=== PATIENT | female | born 1950 | race Caucasian/White ===

== ENCOUNTER 2020-01-08 16:47 | Inpatient (IN) | payer OTHER ==
[~2020-01-08] VITALS: Ht 162.6 cm; Wt 64.6 kg
[2020-01-08 16:53] VITALS: BP 106/72
[2020-01-08 18:28] LABS: URINE BILIRUBIN NEGATIVE (Negative); URINE BLOOD NEGATIVE (Negative); URINE CLARITY CLEAR; URINE COLOR YELLOW; URINE GLUCOSE-RANDOM* NEGATIVE (Negative); URINE KETONES NEGATIVE (Negative); URINE LEUKOCYTES-REFLEX NEGATIVE (Negative); URINE NITRITE-REFLEX NEGATIVE (Negative); URINE PROTEIN (DIPSTICK) NEGATIVE (Negative); URINE SPECIFIC GRAVITY <= 1.005 (1.005-1.035); URINE UROBILINOGEN 0.2 E.U./dl (0.2-1.0)
[2020-01-08 20:10] LABS: ABSOLUTE NEUTROPHILS 2.3 thou/uL (1.4-8.2); BASOPHILS 0.7 % (0.0-2.0); EOSINOPHILS 2.9 % (0.0-3.0); HEMATOCRIT 37.8 % (37.0-47.0); HEMOGLOBIN 12.6 gm/dL (12.0-15.0); LYMPHOCYTES 33.9 % (24.0-44.0); MCH 32.2 pg (26.0-34.0); MCHC 33.3 g/dL (28.0-37.0); MONOCYTES 10.7 % (1.0-8.0); PLATELET COUNT 196 thou/uL (150-400); POLYS 51.8 % (36.0-66.0); WBC 4.4 thou/uL (4.0-11.0)
[2020-01-08 20:17] LABS: CALCIUM 10.3 mg/dL (8.5-10.1); POTASSIUM 3.5 mmol/L (3.5-5.1)
[2020-01-08 20:22] LABS: ALBUMIN 3.5 g/dL (3.4-5.0); TOTAL BILIRUBIN 0.2 mg/dL (<0.1-1.0); TOTAL PROTEIN 6.9 g/dL (6.4-8.2)
[2020-01-08] MEDS ORDERED: AMLODIPINE BESY10 MG PO (21:10)
[2020-01-08] MEDS ORDERED: ASA81BEC PO (21:10)
[2020-01-08] MEDS ORDERED: CLONAZEPAM 0.50.5 M1 PO (21:11)
[2020-01-08] MEDS ORDERED: DEPAKOTE 250MG250 M1 PO ×2 (21:11→21:12)
[2020-01-08] MEDS ORDERED: LEXAPRO 10 MG T10 M2 PO (21:13)
[2020-01-08] MEDS ORDERED: HALOPERIDOL 5 MG5 MG PO (21:14)
[2020-01-08] MEDS ORDERED: HYDROCHLOROTHIA25 M2 PO (21:14)
[2020-01-08] MEDS ORDERED: LACTULOSE10 GM/152 PO (21:16)
[2020-01-08] MEDS ORDERED: LEVETIRACETAM500 M1 PO (21:16)
[2020-01-08] MEDS ORDERED: SYNTHROID112 MC1 PO (21:17)
[2020-01-08] MEDS ORDERED: LINZESS72 MCG PO (21:18)
[2020-01-08] MEDS ORDERED: LISINOPRIL20 MG PO (21:18)
[2020-01-08] MEDS ORDERED: OXCARBAZEPINE600 MG PO (21:19)
[2020-01-08] MEDS ORDERED: ZYPREXA 10 MG T10 MG PO (21:19)
[2020-01-08] MEDS ORDERED: RISPERDAL0.5 MG PO (21:20)
[2020-01-08] MEDS ORDERED: CLONIDINE HCL0.1 MG PO (21:21)
[2020-01-08] MEDS ORDERED: TRAZODONE HCL50 MG PO (21:21)
[2020-01-08] MEDS ORDERED: ALMACONE LIQUI355 ML PO (21:22)
[2020-01-08] MEDS ORDERED: TYLENOL325 MG PO (21:22)
[2020-01-08 21:23] VITALS: BP 110/74
[2020-01-08] MEDS ORDERED: ATIVAN2 MG PO (21:24)
[2020-01-08] MEDS ORDERED: ZOFRAN4 MG PO (21:24)
[2020-01-08] MEDS ORDERED: VOLTAREN GEL 1100 G1 TOP (21:25)
--- NOTE | 2020-01-08 21:30 | NUR ---
Patient admitted to [facility] after medical clearance from the [place] emergency department. Patient brought to us by wheel chair. Patient is in good spirits and cooperative at this time. Patient denies pain. Patient states that she fell from her chair and scuffed her knees and chin. Scabbing is present on both knees anteriorly and patient has a scab on her chin. Patient is a poor historian. Patient states that she is 43 years old. Patient denies hi/si. Patient states that she smokes 2 cigarettes a day and asked if she could have one now. Patient was informed that nicotine patches or nicotine gum would be made available if needed. Patients affect is blunted. Patients vital signs are stable, blood pressure 113/78, pulse 79, respiratory rate 16, SpO2 96%, temperature 96.1. Patients assessment shows clear breath sounds, active bowel sounds, and s1 s2 heard with auscultation.
[2020-01-09 08:20] VITALS: BP 103/80
--- NOTE | 2020-01-09 09:11 | NUR ---
PT EATING IN DINING ROOM. PT STATED SHE HAS ISSUES WITH RT HAND HER THUMB IS STICKING OUT AND HARD TO GET THUMB TO CLOSE. PT HAS SCAB TO CHIN FROM A PREVIOUS FALL. PT STATED SHE HAS SINUS ISSUES. PT CALM AND COORERATIVE. PT SHOWING NO SIGNS OF AGGRESSION. PT TOOK MEDS WHOLE, PT WANTING TO KNOW WHAT EACH PILL WAS. PT IN W/C AT THIS TIME AND GETS AROUND SELF WITH FEET PEDELING.
[2020-01-09 09:18] VITALS: BP 103/80
--- NOTE | 2020-01-09 09:34 | NUR ---
Sw introduced herself to pt and then called and left a for Bhanu DP [phone] providing phone number and requesting information.
[2020-01-09 09:38] LABS: TSH 0.582 uIU/mL (0.358-3.740)
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
[2020-01-09 19:36] VITALS: BP 169/90
[2020-01-09 21:00] VITALS: BP 169/90
--- NOTE | 2020-01-10 00:34 | NUR ---
Assumed care of patient this pm shift. Patient is in good spirits. Patient was sitting in the mileu with another peer talking. Patient denies hi/si. Patient denies pain. Patient asks many questions and was educated on her hs medications. Patient acts appropriately. Patients voice is low and somewhat muffled when she speaks. Patient can ambulate with assistance but has a wobbly gait. Patient was asked to utilize her wheelchair until such time as physical therapy can assess and educate. Patient takes medications whole. Patients assessment shows clear breath sounds, active bowel sounds, and s1 s2 heard with auscultation. Patient does have a loose cough but is not expelling any phlegm. Patient also requested fixadent to seal her denture into place. We will continue to monitor.
[2020-01-10 08:38] VITALS: BP 120/86
--- NOTE | 2020-01-10 09:25 | NUR ---
SW has made multiple attempts to complete the intake assessment but pt does not want to communicate. Sw sent updates to [facility] and called and left a VM for admissions.
--- NOTE | 2020-01-10 12:29 | NUR ---
In dining room without s/o distress. Calm majority of time but has periods where she becomes agitated, demanding and raises voice. Compliant with meds. Ambulates with unsteady gait but refuses to use walker. Put on yellow Tshirt with encouragement and uses chair alarm when reminded. Sometimes has rambling speech. Asks that we talk to pts about flu and pneumococcal vaccines. Refusing assessment at this time, states she will agree after lunch. Took short nap before lunch. Currently eating lunch in day room with peers. No s/o distress.
[2020-01-10 20:00] VITALS: BP 117/72
[2020-01-10 22:18] VITALS: BP 117/72
--- NOTE | 2020-01-11 00:43 | NUR ---
2030 RESUMMED CARE FROM DAY SHIFT, PATIENT IN DAY ROOM TALKING WITH OTHER PATIENTS. PATIENT'S GAIT WOBBLY I SUGGESTED SHE USE A WALKER TO HELP GAIT BUT REFUSED. PATIENT TOOK MEDICATION WITHOUT INCIDENCE, DENIES SI/HI/AH/VH AT PRESENT. PATIENT HAD A SMALL FORMED BOWEL MOVEMENT, LUNGS CLEAR BOWEL SOUNDS PRESENT. PATIENT COOPERATIVE SOME ANXIETY WILL CONTINUE TO MONITOR PATIENT FOR SAFETY AND BEHAVIORS.
[2020-01-11 08:20] VITALS: BP 122/79
--- NOTE | 2020-01-11 08:20 | NUR ---
PT IN DINING ROOM AMBULATING WITH WOBBLE GAIT. PT IS STEADY. PT HAS HX OF POLIO. PT DENIES ANY PAIN. PT STATED SHE TOOK OFF NICOTINE PATCH LAST NIGHT AND PUT IT ON THE BACK OF A RECLINER CHAIR, THIS FRONT MAKER FOUND PATCH AND DISPOSED OF IT ACCORDINALY. THANKED PT FOR BEING HONEST OF THE PATCH PLACEMENT. PT LUNGS CLEAR. NO SIGNS OF VADIM AT THIS TIME.
[2020-01-11 09:34] VITALS: BP 122/79
--- NOTE | 2020-01-11 12:14 | NUR ---
Sw attempted to complete intake assesmsnet in multiple ways. Pt was guarded, and hostile. [facility] was unable to provide any social HX, and SW left a VMw bill Drummond asking for collatoral information and no call was returned. Jessica sent updates on 01/10 20.
--- NOTE | 2020-01-11 13:18 | NUR ---
TOOK OFF NICOTINE PATCH, PT STATED SHE DIDN'T NEED IT.
--- NOTE | 2020-01-11 16:34 | NUR ---
Jessica completed the FAX civersheet and updates will be sent on Tuesday to [facility].
[2020-01-11 21:34] VITALS: BP 142/64
[2020-01-11 22:53] VITALS: BP 142/64
--- NOTE | 2020-01-12 01:12 | NUR ---
Pt. up ad diego ambulating in hallways and making demands for snacks and various other things. Pt. was taken scrub pants and another blanket for her room and was given sugar-free cookies from cabinet. Pt. took hs meds without difficulty and put her self to bed.
[2020-01-12 09:06] VITALS: BP 104/60
[2020-01-12 10:13] VITALS: BP 104/69
--- NOTE | 2020-01-12 11:41 | NUR ---
1040 RESUMMED CARE FROM OVERNIGHT SHIFT THIS AM, PATIENT IN DAY ROOM WAITING FOR BREAKFAST. PATIENT TOOK MEDICATION WITHOUT INCIDENCE I APPLIED MEDICATION FOR SCRAPS ON CHIN AND KNEES. PATIENT'S BOWEL SOUNDS PRESENT, LUNGS CLEAR ABDOMEN SOFT. PATIENT DENIES SI/HI/AH/AH NO DEPRESSION OR ANXIETY AT PRESENT, I ASKED PATIENT IF SHE WANTED A WALKER TO HELP WITH GAIT DUE TO HX OF POLIO. SHE REFUSED WILL CONTINUE TO MONITOR SAFETY AND BEHAVIORS.
[2020-01-12 19:26] VITALS: BP 106/79
[2020-01-13 02:27] VITALS: BP 106/79
--- NOTE | 2020-01-13 05:19 | NUR ---
Pt.'s voice is hoarse and loud and speech is garbled. Pt. becomes inpatient when she is not understood and has to repeat herself. Pt. is up ad diego ambulating in halls. Gait is slow and deliberate. Pt. has curved spine and gait wobbles side to side. Pt. has had a history of polio. Pt. denies any pain and no signs and symptoms of distress noted. Pt. took meds whole with thin liquids.
--- NOTE | 2020-01-13 05:21 | NUR ---
Pt. slept well throughout shift. Pt. awoke once and came to nurse's station. Once she was told that it was 2:30 a.m. she returned to her room and to her bed. Respirations even and non-labored. NO signs or symptoms of distress noted.
[2020-01-13 06:24] VITALS: BP 166/64
--- NOTE | 2020-01-13 18:19 | NUR ---
PATIENT UP AMBULATING, REFUSING WALKER. REPORTS DRY LIPS, OFFERED PATIENT MOUTH MOISTURIZER FROM HOSPITAL SUPPLY. PATIENT ARGUMENTATIVE THAT SHE NEEDS BLISTEX. STATES IT IS THE ONLY THING THAT WILL WORK. CALLED FAMILY AND REPORTED WE WOULDN'T HELP HER, FAMILY REQUESTED TO SPEAK WITH NURSE. EXPLAINED THAT WE ONLY HAVE 1 TYPE OF MOISTURIZER AND WE OFFERED. EDUCATED THAT FAMILY MAY BRING A DIFFERENT MOISTURIZER. FAMILY VISITED PATIENT AT 16:00, BROUGHT BLISTEX FOR PATIENT. PATIENT RESTLESS THIS SHIFT. PUSHING OTHER PATIENT AROUND HALLS IN WHEELCHAIR. REDIRECTS WELL. PARTICIPATED IN GROUP. SOCIAL WITH OTHERS THIS SHIFT.
[2020-01-13 19:36] VITALS: BP 125/78
--- NOTE | 2020-01-14 03:49 | NUR ---
ASSUMED PT CARE AROUND 1914. AXOX2. VSS. NO S/S ACUTE DISTRESS NOTED OR REPORTED AT THIS TIME. WILL CONT TO MONITOR FOR ANY CHANGES IN CONDITION.
[2020-01-14 07:57] VITALS: BP 144/70
--- NOTE | 2020-01-14 10:01 | NUR ---
0700 ASSUMED CARE OF PATIENT AT THIS TIME. PATIENT ASLEEP AT THAT TIME. 0850 NO C/O PAIN, DENIES SI/HI/AH/VH, PATIENT STATES SHE WAS GIVEN TO MANY MEDS LAST NIGHT, WAS SUPOSE TO RECIEVE 2 PILLS AND RECIEVED 4 PILLS. SHE COMPLAINS OF BEING OVER MEDICATED. QUESTIONED ALL MEDS BEFORE TAKING, MEDS GIVEN WHOLE WITH H2O. NO GOAL VOICED. PATIENT CONCERN ARE HER MEDICATION. PATIENTIS CALM AND APPEARS TO GET AGITATED WHEN DISCUSSING MEDICATION. AMBULATES WITH STEADY GAIT IN ROSEN AND DAYROOM. WILL CONTINUE TO OBSERVE.
--- NOTE | 2020-01-14 16:07 | NUR ---
SW made 2 calls to [facility] requesting a call back and a time for picker box operator as pt was discharging tomorrow. [facility] did not call back. At this point there is no d/c time.
--- NOTE | 2020-01-14 17:35 | NUR ---
PATIENT REQUESTS TO HAVE CODE STATUS CHANGED TO FULL CODE. DR WRIGHT NOTIFIED AND CODE STATUS WILL BE CHANGED.
[2020-01-14 19:49] VITALS: BP 126/91
--- NOTE | 2020-01-15 02:10 | NUR ---
Care assumed of patient at 1915: Patient seated in dayroom at start of shift. Calm, pleasant and cooperative. Mumbled speech at times. Alert and oriented to person and place. Confused and forgetful on situation and time. Denies pain or discomfort. Denies anxiety and depression. Denies SI/HI/AH/VH. No delusional or paranoia behaviors observed. Patient needed re-direction a couple times due to demanding medications but was easily re-directed without issue. Patient up ad diego. Good balance, unsteady gait noted at times. No use of assistive devices. Continent of bowel and bladder. Ate 100% HS snack. Took HS medication whole without difficulty. Retired to bed at a reasonable hour and has been resting quietly.
[2020-01-15] MEDS ORDERED: ZYPREXA 5 MG TAB5 M1 PO (08:28)
[2020-01-15] MEDS ORDERED: OLANZAPINE ODT5 MG PO (08:28)
[2020-01-15 08:53] VITALS: BP 138/75
--- NOTE | 2020-01-15 08:58 | NUR ---
SAUNDRA called [facility] after not recieving a call back yesterday and no VM today. Admissions was unavailable so SAUNDRA asked for [facility] and then had to leave yet another VM. SW rpeorted in the VM that this pt was redy to d/c today and we needed a time for pharmacy picking tech.
[2020-01-15 09:39] VITALS: BP 138/75
--- NOTE | 2020-01-15 10:02 | NUR ---
JESSICA finally spoke with [facility] in admissions and d/c was set for 1PM. Jessica set up transportation with [employer] for 1pm pharmacy picking technician.This was reported to Dr Morrison and nursing. Jessica made packet and left in on chart. Jessica faxed d/c orders and summary to [phone] and left FAx confirmation with fax packet on chart.
--- NOTE | 2020-01-15 10:18 | NUR ---
1018 RESUMMED CARE FROM OVERNIGHT SHIFT THIS AM, PATIENT UP DRESSED WAITING IN DAY ROOM FOR BREAKFAST. PATIENT ATE BREAKFAST TOOK MEDICATION WITHOUT INCIDENCE. PATIENT IS DISCHARGING TODAY AND IS VERY HAPPY; BOWEL SOUNDS PRESENT ABDOMEN SOFT AND ROUND. LUNGS CLEAR DENIES SI/HI/AH/VH AT PRESENT. I WENT OVER PATIENT'S BELONGINGS PRIOR TO DISCHARGE. PATIENT CALM COOPERATIVE WILL CONTINUE TO MONITOR PATIENT FOR SAFETY AND BEHAVIORS.
== END 2020-01-15 12:59 | DRG 885 ==
LOC: ER 16:47 → EROBS 20:29 → SBH 20:29
PROVIDERS: Physician Assistant; ADMIT Psychiatry & Neurology Psychiatry
DX: F20.9 Schizophrenia, unspecified (principal); N18.3 Chronic kidney disease, stage 3 (moderate); G93.40 Encephalopathy, unspecified; G89.29 Other chronic pain; F31.9 Bipolar disorder, unspecified; F41.9 Anxiety disorder, unspecified; G40.909 Epilepsy, unspecified, not intractable, without status epilepticus; F17.210 Nicotine dependence, cigarettes, uncomplicated; M79.644 Pain in right finger(s); I12.9 Hypertensive chronic kidney disease with stage 1 through stage 4 chronic kidney disease, or unspecified chronic kidney disease; Z66 Do not resuscitate; E03.9 Hypothyroidism, unspecified; K58.9 Irritable bowel syndrome, unspecified; M19.90 Unspecified osteoarthritis, unspecified site; Z79.899 Other long term (current) drug therapy; Z79.82 Long term (current) use of aspirin; Z88.1 Allergy status to other antibiotic agents; Z88.0 Allergy status to penicillin; Z88.8 Allergy status to other drugs, medicaments and biological substances; Z85.89 Personal history of malignant neoplasm of other organs and systems
CPT/HCPCS: 10880

== ENCOUNTER 2020-03-27 10:49 | Emergency (ER) | payer OTHER ==
[~2020-03-27] VITALS: Ht 157.5 cm; Wt 63.5 kg
[~2020-03-27 10:49] MED LIST: ALMACONE LIQUI355 ML PO; AMLODIPINE BESY10 MG PO; ASA81BEC PO; ATIVAN2 MG PO; CLONAZEPAM 0.50.5 M1 PO; CLONIDINE HCL0.1 MG PO; DEPAKOTE 250MG250 M1 PO; HALOPERIDOL 5 MG5 MG PO; HYDROCHLOROTHIA25 M2 PO; LACTULOSE10 GM/152 PO; LEVETIRACETAM500 M1 PO; LEXAPRO 10 MG T10 M2 PO; LINZESS72 MCG PO; LISINOPRIL20 MG PO; OLANZAPINE ODT5 MG PO; OXCARBAZEPINE600 MG PO; RISPERDAL0.5 MG PO; SYNTHROID112 MC1 PO; TRAZODONE HCL50 MG PO; TYLENOL325 MG PO; VOLTAREN GEL 1100 G1 TOP; ZOFRAN4 MG PO; ZYPREXA 10 MG T10 MG PO; ZYPREXA 5 MG TAB5 M1 PO
[2020-03-27 11:32] LABS: ABSOLUTE NEUTROPHILS 7.5 thou/uL (1.4-8.2); BASOPHILS 0.3 % (0.0-2.0); EOSINOPHILS 1.6 % (0.0-3.0); HEMATOCRIT 36.2 % (37.0-47.0); HEMOGLOBIN 12.3 gm/dL (12.0-15.0); LYMPHOCYTES 11.6 % (24.0-44.0); MCH 32.9 pg (26.0-34.0); MCV 96.9 fL (80.0-100.0); MONOCYTES 8.4 % (1.0-8.0); PLATELET COUNT 189 thou/uL (150-400); POLYS 78.1 % (36.0-66.0); RBC 3.73 mil/uL (4.20-5.00); RDW 14.5 % (10.5-14.5); WBC 9.6 thou/uL (4.0-11.0)
[2020-03-27 11:36] LABS: CREATININE 1.1 mg/dL (0.6-1.0)
[2020-03-27 11:44] LABS: ALBUMIN 3.7 g/dL (3.4-5.0); MAGNESIUM 1.7 mg/dL (1.8-2.4); TOTAL BILIRUBIN 0.4 mg/dL (<0.1-1.0); TOTAL PROTEIN 7.4 g/dL (6.4-8.2)
[2020-03-27 12:32] LABS: AMP/METHAMP Negative (Negative); BARBITURATES Negative (Negative); BENZODIAZEPINES Negative (Negative); COCAINE Negative (Negative); METHADONE Negative (Negative); OPIATES Negative (Negative); PCP Negative (Negative)
[2020-03-27 13:30] VITALS: BP 149/81
[2020-03-27] MEDS ORDERED: ATIVAN2 MG PO ×2 (20:28→21:06)
[2020-03-27] MEDS ORDERED: ZYPREXA2.5 MG PO (20:31)
[2020-03-27] MEDS ORDERED: OLANZAPINE15 MG PO (20:31)
[2020-03-27] MEDS ORDERED: TRAZODONE HCL50 MG PO (21:04)
== END 2020-03-27 14:50 | disposition home or self-care (01) ==
LOC: ER 10:49
PROVIDERS: Emergency Medicine
DX: G40.909 Epilepsy, unspecified, not intractable, without status epilepticus (principal); I10 Essential (primary) hypertension; M19.90 Unspecified osteoarthritis, unspecified site; Z91.14 Patient's other noncompliance with medication regimen; Z88.8 Allergy status to other drugs, medicaments and biological substances; F17.210 Nicotine dependence, cigarettes, uncomplicated; Z91.011 Allergy to milk products; Z88.0 Allergy status to penicillin; Z88.1 Allergy status to other antibiotic agents; Z79.899 Other long term (current) drug therapy; Z79.82 Long term (current) use of aspirin

== ENCOUNTER 2020-03-27 18:04 | Inpatient (IN) | payer OTHER ==
[~2020-03-27] VITALS: Ht 165.1 cm; Wt 55.8 kg
[2020-03-27 18:09] VITALS: BP 159/96
[2020-03-27 18:59] LABS: ABSOLUTE NEUTROPHILS 12.2 thou/uL (1.4-8.2); BASOPHILS 0.5 % (0.0-2.0); EOSINOPHILS 0.2 % (0.0-3.0); HEMOGLOBIN 13.3 gm/dL (12.0-15.0); LYMPHOCYTES 7.8 % (24.0-44.0); MCH 32.2 pg (26.0-34.0); MCHC 33.2 g/dL (28.0-37.0); MONOCYTES 7.9 % (1.0-8.0); POLYS 83.6 % (36.0-66.0); RBC 4.12 mil/uL (4.20-5.00); RDW 14.8 % (10.5-14.5); WBC 14.6 thou/uL (4.0-11.0)
[2020-03-27 19:10] LABS: ANION GAP 15 mmol/L (7-16); BUN 31 mg/dL (7-18); CALCIUM 10.4 mg/dL (8.5-10.1); CHLORIDE 104 mmol/L (98-107); CO2 24 mmol/L (21-32); CREATININE 1.2 mg/dL (0.6-1.0); GLUCOSE 152 mg/dL (74-106); POTASSIUM 3.8 mmol/L (3.5-5.1); SODIUM 143 mmol/L (136-145)
[2020-03-27 19:23] LABS: ALBUMIN 3.9 g/dL (3.4-5.0); DIRECT BILIRUBIN < 0.1 mg/dL (<0.1-0.2); LARGE PLATELETS RARE; PLATELET COUNT 203 thou/uL (150-400); SGOT 24 U/L (15-37); SGPT 29 U/L (30-65); TOTAL BILIRUBIN 0.5 mg/dL (<0.1-1.0); TOTAL PROTEIN 7.9 g/dL (6.4-8.2)
[2020-03-27] MEDS ORDERED: ATIVAN2 MG PO ×2 (20:28→21:06)
[2020-03-27] MEDS ORDERED: OLANZAPINE15 MG PO (20:31)
[2020-03-27] MEDS ORDERED: ZYPREXA2.5 MG PO (20:31)
[2020-03-27 20:50] VITALS: BP 180/97
[2020-03-27 20:59] VITALS: BP 164/98
[2020-03-27] MEDS ORDERED: TRAZODONE HCL50 MG PO (21:04)
[2020-03-27 21:25] VITALS: BP 153/98
--- NOTE | 2020-03-28 03:30 | NUR ---
PATIENT ARRIVED ON UNIT AT 2109 VIA CART FROM ED ACCOMPAINIED BY SAMANTHA WHYTE. PATIENT ALERT BUT VERY CONFUSED. UPON ASSESSMENT COULD NOT EVEN TELL ME HER NAME. HALF OF THE TIME SHE WOULD ONLY MOUTH THE WORDS AND SOMETIMES SHE WOULD USE GESTURES. HAS A THICK VOICE. SOMETIMES HARD TO UNDERSTAND. GETS AGGITATED EASY. SOMETIMES SHE MAKES NO SENSE WHEN TALKING. NO SEIZURE ACTIVITY NOTED BUT BEDRAILS ARE PADDED. IV IN L SHOULDER. DENIES PAIN. SLEPT OFF AND ON DURING THIS SHIFT.
--- NOTE | 2020-03-28 03:50 | NUR ---
RECIEVED CARE OF THIS PATIENT AT 1900. PATIENT C/O PAIN, MED GIVEN WHEN TIME. PATIENT ALERT AND ORIENTED X4 WITH SOME FORGETFULLNESS. ACCUCHECK WAS 75. WAS GIVEN A SNACK. UP WITH MAX ASSIST. SLEPT MOST OF NIGHT.
[2020-03-28 04:00] VITALS: BP 143/82
--- NOTE | 2020-03-28 04:35 | NUR ---
WAS CALLED TO PATIENT'S ROOM. PATIENT WANTED SOME ICE WATER AND TO GET DRESSED BECAUSE SHE HAD TO [facility]. REMINDER HER SHE WAS IN THE HOSPITAL. SHE SAID SHE SELLS [facility] IN [place]. THIS NURSE TOLD HER SHE WAS IN [place], [place]. SHE SAID SHE SELLS [facility] IN [place], [place], TO. REMINDER HER AGAIN SHE WAS IN THE HOSPITAL. SHE ASKED IF SHE COULD GET DRESSED AGAIN. SHE WAS TOLD THAT SHE HAD TO WAIT UNTIL MORNING. SHE TOLD ME THAT I HAD A NICE UNIFORM ON AND WHY COULD SHE NOT HAVE ONE ON. 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 SHE TOLD ME THAT HER AGE WAS ONLY 39, LATER TOLD ANOTHER NURSE THAT SHE WAS ONLY 25.
--- NOTE | 2020-03-28 06:00 | NUR ---
PATIENT HAS BEEN VERY DEMANDING, STUBBORN AND NOT EASY TO REDIRECT. CALLS OUT FOR PEOPLE NOT HERE. HAS BEEN SHOWN HOW TO USE THE CALL LIGHT SEVERAL TIMES. TOLD ME WHILE I WAS DOING HER ASSESSMENT THAT SHE QUIT SMOKING 3 YEARS AGO. NOW HOLLERING FOR A CIGARETTE.
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
[2020-03-28 08:10] VITALS: BP 120/94
--- NOTE | 2020-03-28 09:03 | NUR ---
ASSESSMENT: CM REVIEWED CHART AND DISCUSSED WITH ATTENDING. PT ADMITTED FROM [facility] DUE TO SEIZURES. PT WAS RECENTLY HERE AT [facility] AND DISCHARGED IN JANUARY 2020 BACK TO [facility]. PATIENTS SISTER JANIS IS HER DPOA AND CM SPOKE WITH HER TO UPDATE. EASTON ALSO SPOKE WITH EULOGIO AT [facility] TO UPDATE AND FAXED UPDATED CLINICAL TO HER. PT HAS A WHEELCHAIR AT THE FACILITY. PLANS ARE FOR PATIENT TO RETURN TO [facility] ONCE MEDICALLY STABLE.
[2020-03-28 15:59] VITALS: BP 105/58
[2020-03-28 17:03] LABS: URINE BILIRUBIN NEGATIVE (Negative); URINE BLOOD NEGATIVE (Negative); URINE CLARITY CLEAR; URINE COLOR YELLOW; URINE GLUCOSE-RANDOM* NEGATIVE (Negative); URINE KETONES NEGATIVE (Negative); URINE LEUKOCYTES-REFLEX NEGATIVE (Negative); URINE NITRITE-REFLEX NEGATIVE (Negative); URINE PROTEIN (DIPSTICK) NEGATIVE (Negative); URINE UROBILINOGEN 0.2 E.U./dl (0.2-1.0)
--- NOTE | 2020-03-28 19:27 | NUR ---
PATIENT HAS NICOTINE PATCH ON DR WEISS HERE AND PUT IN ORDER SHE ALSO CHANGED MEDS FROM IV TO PO PATIENT PULLED OUT. WOULD NOT LET IT BE PUT BACK IN DR WEISS STTED SHE WOULD BE GOING BACK TO [facility] WITH PO MEDS WHICH PATIENT TAKES W/O DIFFICULTY. DR WRIGHT STATES PATIENT HAS NO FAMILY. AND HAS BEEN HER PATIENT FOR AWHILE.
[2020-03-28 19:40] VITALS: BP 81/61
--- NOTE | 2020-03-28 19:42 | NUR ---
SPOKE WITH PATIENT'S POA TO UPDATE THIS AM
--- NOTE | 2020-03-29 05:51 | NUR ---
RECEIVED CARE OF THIS PATIENT AT 1900. PATIENT ALERT TO SELF AND SOMETIMES PLACE. WANTED SOMEONE TO GO TO [facility] TO GET SOMETHING FOR HER. SAYS SHE HAS 24 DOLLARS, 2 TENS AND 4 ONES. THIS NURSE SAW THAT SHE DID HAVE SOME MONEY BUT WOULD NOT SHOW ME EXACTLY HOW MUCH. WANDERS FROM ROOM AND IS EASY TO REDIRECT BACK TO ROOM. PATIENT WAS COMPLIANT WITH MEDS AND TOOK THEM WITHOUT ANY TROUBLE.DENIES PAIN. SLEPT MOST OF NIGHT.
[2020-03-29 06:36] LABS: HEMATOCRIT 36.6 % (37.0-47.0); HEMOGLOBIN 12.4 gm/dL (12.0-15.0); MCH 32.9 pg (26.0-34.0); MCHC 33.8 g/dL (28.0-37.0); MCV 97.3 fL (80.0-100.0); RBC 3.77 mil/uL (4.20-5.00); RDW 14.8 % (10.5-14.5); WBC 5.3 thou/uL (4.0-11.0)
[2020-03-29 06:47] LABS: CALCIUM 9.9 mg/dL (8.5-10.1); CREATININE 1.4 mg/dL (0.6-1.0); MAGNESIUM 2.2 mg/dL (1.8-2.4); POTASSIUM 4.6 mmol/L (3.5-5.1)
[2020-03-29 07:11] VITALS: BP 116/65
--- NOTE | 2020-03-29 07:31 | NUR ---
PATIENT RESTING IN BED SLEEPING. PATIENT HAD NO INCREASED ANIETY ON NOC SHIFT TOOK MEDS HAS NICOTINE PATCH ON.
--- NOTE | 2020-03-29 16:10 | NUR ---
PT HAS ORDER FOR BLADDER SCAN WHICH SHOWED 4 ML THEN STRAIGHT CATH FOR UA TRIED XS 2 NURSES NO URINE RETURN WILL CALL DR MULLEN. WILL TRY STRAIGHT CATH LATER IN DAY. PT PLEASANT AND COOPERATIVE WITH CARE TOLERATED STRAIGHT CATH WITH NO COMPLAINTS.
--- NOTE | 2020-03-29 17:28 | NUR ---
CALLED JANIS FELICIANO TO UPDATE ABOUT PATIEN'T CONDITION SHE IS DPOA. NO ANSWER LEFT MESSAGE FOR HER TO CALL
[2020-03-29 18:21] VITALS: BP 92/70
[2020-03-29 20:45] VITALS: BP 95/60
[2020-03-30 05:00] VITALS: BP 80/59
--- NOTE | 2020-03-30 05:15 | NUR ---
ASSUMED PT CARE AT 1900. PT COOPERATIVE WITH CARE, TOOK MEDICATION WITH NO PROBLEMS. WENT TO BED AND SLEPT ALL NIGHT. HOPES TO GO HOME SOON.
[2020-03-30 06:35] VITALS: BP 100/72
[2020-03-30 07:35] LABS: HEMATOCRIT 33.6 % (37.0-47.0); HEMOGLOBIN 11.5 gm/dL (12.0-15.0); MCHC 34.1 g/dL (28.0-37.0); MCV 96.6 fL (80.0-100.0); RBC 3.48 mil/uL (4.20-5.00); RDW 14.5 % (10.5-14.5)
[2020-03-30 07:39] VITALS: BP 88/64
[2020-03-30 07:48] LABS: ALBUMIN 2.9 g/dL (3.4-5.0); CALCIUM 9.5 mg/dL (8.5-10.1); CREATININE 1.2 mg/dL (0.6-1.0); PHOSPHORUS 4.4 mg/dL (2.5-4.9); POTASSIUM 3.7 mmol/L (3.5-5.1); TOTAL BILIRUBIN 0.3 mg/dL (<0.1-1.0); TOTAL PROTEIN 6.1 g/dL (6.4-8.2)
[2020-03-30 11:46] LABS: ABSOLUTE NEUTROPHILS 1.8 thou/uL (1.4-8.2); LARGE PLATELETS FEW; PLATELET COUNT 180 thou/uL (150-400); PLATELET ESTIMATE NORMAL
[2020-03-30 12:44] LABS: AMP/METHAMP Negative (Negative); BARBITURATES Negative (Negative); BENZODIAZEPINES Negative (Negative); COCAINE Negative (Negative); METHADONE Negative (Negative); OPIATES Negative (Negative); PCP Negative (Negative)
[2020-03-30 13:15] VITALS: BP 105/66
[2020-03-30 13:17] VITALS: BP 91/64
[2020-03-30] MEDS ORDERED: FELODIPINE 5 MG5 M1 PO (14:53)
[2020-03-30] MEDS ORDERED: ALTACE5 MG PO (14:54)
[2020-03-30] MEDS ORDERED: ASA81BEC PO (14:56)
[2020-03-30] MEDS ORDERED: SYNTHROID112 MC1 PO (14:59)
[2020-03-30] MEDS ORDERED: SYNTHROID100 MC1 PO (15:00)
[2020-03-30 15:37] VITALS: BP 112/86
--- NOTE | 2020-03-30 16:12 | NUR ---
Assumed care of pt at 0700. Pt impulsive and refuses fall precautions. States she wants to go back and smoke. Refuses nicotine patch. Low BP this am. BP meds held. Provider aware. Blood pressure rechecked 112/86. Liason called and asked if facility will take patient back today. She states yes and will arrange transportation. Will call facility and give report.
== END 2020-03-30 18:00 | DRG 101 ==
LOC: ER 18:04 → 4S 20:40 → EROBS 20:40 → 4S 21:11
PROVIDERS: Emergency Medicine; Internal Medicine; Nurse Practitioner Family; ADMIT Hospitalist
DX: G40.919 Epilepsy, unspecified, intractable, without status epilepticus (principal); N17.9 Acute kidney failure, unspecified; E03.9 Hypothyroidism, unspecified; F25.9 Schizoaffective disorder, unspecified; K21.9 Gastro-esophageal reflux disease without esophagitis; I12.9 Hypertensive chronic kidney disease with stage 1 through stage 4 chronic kidney disease, or unspecified chronic kidney disease; F17.210 Nicotine dependence, cigarettes, uncomplicated; K58.9 Irritable bowel syndrome, unspecified; F41.9 Anxiety disorder, unspecified; K59.00 Constipation, unspecified; F31.9 Bipolar disorder, unspecified; G47.00 Insomnia, unspecified; R63.4 Abnormal weight loss; N18.9 Chronic kidney disease, unspecified; M19.90 Unspecified osteoarthritis, unspecified site; Z85.828 Personal history of other malignant neoplasm of skin; Z79.899 Other long term (current) drug therapy; Z88.1 Allergy status to other antibiotic agents; Z88.0 Allergy status to penicillin; Z88.8 Allergy status to other drugs, medicaments and biological substances; Z68.20 Body mass index [BMI] 20.0-20.9, adult; Z91.14 Patient's other noncompliance with medication regimen; W18.30XA Fall on same level, unspecified, initial encounter; Y93.89 Activity, other specified; Y92.89 Other specified places as the place of occurrence of the external cause; Y99.8 Other external cause status
CPT/HCPCS: 10195

== ENCOUNTER 2020-04-08 12:02 | Inpatient (IN) | payer OTHER ==
[~2020-04-08] VITALS: Ht 152.4 cm; Wt 57.4 kg
--- NOTE | ~2020-04-08 | EMS ---
[facility] [address] [place] [address] EMS Patient Care Report Name: JOSSUE CANO Room #: REG STALIN Flowers#: [id number] Admission: 04/08/20 Attend Phys: Discharge: Date of : 50 Report #: [id number] THIS REPORT FOR: //name// Report Transmitted: 04/08/2020 12:17 EMS Care Summary [place], [place]/[facility] Incident [id number] @ 04/08/2020 11:25 Incident Location [address] [place] [address] Patient JOSSUE CANO Female, 69 Years 1950 Patient Address [address] [place] [id number] Patient History Hypertension (HTN),Seizures,Gastro-Esophageal Reflux Disease (GERD),Osteoporosis,Bipolar II Disorder,Schizophrenia,Depression,Osteoarthritis,Anxiety,Chronic Pain,Constipation,Hypothyroidism,Schizoaffective Disorder,Insomnia, Patient Allergies Penicillin allergy,[place]wood allergy,Niacin,Valium, Patient Medications Lorazepam, Olanzapine, Trazodone, Lisinopril, Levetiracetam, Levothyroxine, Aspirin, Clonazepam, Acetaminophen, Ondansetron, Lactulose, Felodipine, Ramipril, Tylenol, Diclofenac, Clonidine, Depakote, Disposition Transported No Lights/[place] Dispatch Reason Psychiatric Problem/Abnormal Behavior/Suicide Attempt Transported To [facility] Narrative THE PATIENT WAS FOUND BEING WHEELED OUTSIDE THE FRONT DOORS OF THE LONG TERM IN A WHEELCHAIR BY THREE STAFF MEMBERS. STAFF STATES THE PATIENT HAS BEEN AGITATED, COMBATIVE AND REFUSING MEDICATIONS FOR THE LAST TWO OR THREE DAYS. [facility] [address] [place] [address] EMS Patient Care Report Name: JOSSUE CANO Room #: REG [facility].#: [id number] Admission: 04/08/20 Attend Phys: Discharge: Date of : 50 Report #: [id number] NOTES IN THE PAPERWORK STATE THE PATIENT HAD AN UNWITNESSED FALL EARLIER TODAY WHERE SHE STATES SHE FELL ONTO HER BUTTOCKS AND DENIES ANY COMPLAINTS FROM THE FALL. THE PATIENT IS ALERT AND ORIENTED TO HERSELF SCORING A GCS OF 14. A BLOOD GLUCOSE OF 96 WAS OBTAINED. OLD LOOKING BRUISING WAS NOTED ON THE RLQ OF THE ABDOMEN. NO OTHER OBVIOUS INJURIES OR ABNORMALITIES WERE NOTED. NO CHANGES IN THE PATIENT'S CONDITION DURING TRANSPORT. THE PATIENT WAS MOVED TO BED 9 AT THE [facility] ER AND LEFT WITH THE SIDE RAILS UP AND LOCKED. CARE WAS TRANSFERRED TO THE ER NURSINGS STAFF. Initial Vitals @11:48P: 67,R: 18,BP: 101/59,Pain: 0/10,GCS: 14,CO: 2,SpO2: 92,Revised Trauma: 12, @11:40P: 86,R: 18,BP: 131/84,Pain: 0/10,GCS: 14,Glucose: 96,Revised Trauma: 12, Assessments @11:35MENTAL:Combative,Confused,Event Oriented,Person Oriented,SKIN:No Abnormalities,HEENT:Head/Face: No Abnormalities,Eyes: No Abnormalities,Neck/Airway: No Abnormalities,LUNG SOUNDS:Right Lower: ECC,Right Lower: Other,General: No Abnormalities,Left Upper: No Abnormalities,Right Upper: No Abnormalities,Left Lower: No Abnormalities,ABDOMEN:Right Lower: ECC,Right Lower: Other,General: No Abnormalities,Left Upper: No Abnormalities,Right Upper: No Abnormalities,Left Lower: No Abnormalities,PELVIS//GI:No Abnormalities,EXTREMITIES:Left Arm: No Abnormalities,Right Arm: No Abnormalities,Left Leg: No Abnormalities,Right Leg: No Abnormalities,PULSE:Radial: 2+ Normal,NEURO:No Abnormalities, Impression Behavioral/psychiatric episode Procedures @11:35ALS AssessmentResponse: Unchanged Timeline 11:24,Call Received 11:24,Dispatch Notified 11:25,Dispatched 11:26,En Route 11:34,On Scene 11:35,At Patient 11:35,ALS Assessment,Response: Unchanged 11:40,BP: 131/84 M,PULSE: 86,RR: 18 R,SPO2: Ox,ETCO2: ,B,PAIN: 0,GCS: 14, 11:46,Depart Scene 11:48,BP: 101/59 M,PULSE: 67,RR: 18 R,SPO2: 92 Ox,ETCO2: ,BG: ,PAIN: 0,GCS: 14, 12:14,At Destination 12:30,Call Closed [facility] [address] [place] [address] EMS Patient Care Report Name: JOSSUE CANO Room #: GURVINDER Flowers#: [id number] Admission: 04/08/20 Attend Phys: Discharge: Date of : 50 Report #: [id number] Disclaimer v1.1 Copyright 2020 [employer] This EMS Care Summary contains data elements from the applicable legal record (which may be displayed differently). It is designed to provide pertinent information for the following purposes: continuity of care, clinical quality, and state data reporting. The complete legal record is available to ED staff and administrators of the receiving hospital in [employer] Patient Tracker. All data is provided "as is."
[~2020-04-08 12:02] MED LIST changes: +ALTACE5 MG PO; +FELODIPINE 5 MG5 M1 PO; +OLANZAPINE15 MG PO; +SYNTHROID100 MC1 PO; +ZYPREXA2.5 MG PO
[2020-04-08 12:03] VITALS: BP 111/65
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
[2020-04-08 12:48] LABS: ABSOLUTE NEUTROPHILS 4.2 thou/uL (1.4-8.2); BASOPHILS 0.6 % (0.0-2.0); EOSINOPHILS 2.3 % (0.0-3.0); HEMATOCRIT 30.9 % (37.0-47.0); HEMOGLOBIN 10.7 gm/dL (12.0-15.0); LYMPHOCYTES 15.9 % (24.0-44.0); MCH 33.7 pg (26.0-34.0); MCHC 34.7 g/dL (28.0-37.0); MONOCYTES 8.6 % (1.0-8.0); POLYS 72.6 % (36.0-66.0); RBC 3.18 mil/uL (4.20-5.00); RDW 14.6 % (10.5-14.5); WBC 5.8 thou/uL (4.0-11.0)
[2020-04-08 12:50] LABS: CALCIUM 9.2 mg/dL (8.5-10.1); CREATININE 1.3 mg/dL (0.6-1.0); POTASSIUM 5.7 mmol/L (3.5-5.1)
[2020-04-08 12:56] LABS: ALBUMIN 3.2 g/dL (3.4-5.0); TOTAL BILIRUBIN 0.2 mg/dL (0.2-1.0); TOTAL PROTEIN 6.3 g/dL (6.4-8.2)
[2020-04-08 13:40] LABS: URINE BILIRUBIN NEGATIVE (Negative); URINE BLOOD NEGATIVE (Negative); URINE CLARITY CLEAR; URINE COLOR YELLOW; URINE GLUCOSE-RANDOM* NEGATIVE (Negative); URINE KETONES TRACE (Negative); URINE LEUKOCYTES-REFLEX TRACE (Negative); URINE NITRITE-REFLEX NEGATIVE (Negative); URINE PROTEIN (DIPSTICK) NEGATIVE (Negative); URINE SPECIFIC GRAVITY <= 1.005 (1.005-1.035); URINE UROBILINOGEN 0.2 E.U./dl (0.2-1.0)
[2020-04-08 13:48] LABS: AMP/METHAMP Negative (Negative); BARBITURATES Negative (Negative); BENZODIAZEPINES Negative (Negative); COCAINE Negative (Negative); METHADONE Negative (Negative); OPIATES Negative (Negative); PCP Negative (Negative)
--- NOTE | 2020-04-08 13:57 | NUR ---
I was asked to assess murphy to see if she would meet criteria for SBH. Murphy was asleep. I attempted to wake her by calling her name, she turned her head towards my voice. I did a sternal rub, she opened her eyes for three seconds and closed them. I asked her what brought her to the hospital. She mummbled something I could not understand. I left the room and when I returned Murphy was awake, had her hospital gown off and was sitting on the edge of the bed. I and another staff memeber got her dressed. She was attempting to leave the room. I informed the ER staff, as Murphy had an IV in at the time. She stated she needed to use the restroom. The ER nurse unhooked the IV and stood Murphy up. Murphy was very unsteady, she began to lean as if she was going to fall. I assisted in helping Murphy to and fro the bathroom. According to the ER phsyician's report, Murphy has been comabtive, and refusing her medications. Murphy has dx of schizoaffective D/O. Dr. Talavera was consulted. Murphy does meet criteria for SBH.
[2020-04-08 13:59] LABS: PLATELET COUNT 147 thou/uL (150-400)
[2020-04-08 17:09] VITALS: BP 118/65
[2020-04-08 17:45] VITALS: BP 117/69
--- NOTE | 2020-04-08 17:45 | NUR ---
PT ARRIVED TO ROOM. PT NEEDED ASSISTANCE TO TRANSFER OVER TO BED PER DR. LEON AND THIS PROGRAM CHECKER. PT REFUSING VITAL SIGNS AT THIS TIME, PT STATED IT HURTS. PT NECKLACE REMOVED AND PT STATED THAT SHE WANTED IT BACK DUE TO A NURSE GAVE IT TO HER. PT NOT ABLE TO ANSWER QUESTIONS AT THIS TIME.
--- NOTE | 2020-04-08 18:40 | NUR ---
NOTIFIED JANIS WHITE OF ADMIT. SHE VERBALY CONSENTED FOR PT FOR TREATMENT, VERIFED CONSENT WITH ANOTHER NURSE. JANIS STATED SHE WAS AT [facility] NOT LONG AGO WITH SEIZURE, SHE STATED THAT SHE PROB. NEEDED TO VISIT [facility] THEN. THIS RATE ANALYST MENTION TO CHRISTOPHER THAT PT WAS LACTOSE INTOLERANT WITH DIET, SHE STATED THEN THAT WASN'T TRUE. PT RESTING IN BED AT THIS TIME.
[2020-04-08] MEDS ORDERED: VOLTAREN GEL 1100 G1 TOP (20:14)
[2020-04-08] MEDS ORDERED: ESCITALOPRA5 MG/5 ML PO (20:15)
[2020-04-08] MEDS ORDERED: KEPPRA XR500 MG PO (20:18)
[2020-04-08] MEDS ORDERED: OLANZAPINE5 M1 PO (20:21)
[2020-04-08] MEDS ORDERED: ONDANSETRON ODT4 MG PO (20:24)
[2020-04-08] MEDS ORDERED: LINZESS72 MCG PO (20:25)
[2020-04-08 20:40] VITALS: BP 144/87
--- NOTE | 2020-04-09 03:22 | NUR ---
PT ARRIVED TO [facility] UNIT AROUND 1800. PATIENT WAS NONCOMPLIANT AND REFUSING VITALS AND MEDS. AROUND 1915 PATIENT WAS HEARD YELLING AND SOBBING. I WENT TO HER ROOM. SHE WAS SITTING ON SIDE OF BED YELLING TO GET HER OUT OF HERE AND SHE WAS NOT STAYING. PATIENT THEN BEGAN SOBBING AND SAYING SHE DIDN'T BELONG HERE AND SHE NEEDS TO GET OUT OF HERE. SPOKE WITH PT TO CONSOLE HER AND LET HER KNOW SHE WAS SAFE AND SHE IS HERE SO THE DOCTOR CAN HELP HER FEEL BETTER. EXPLAINED THAT ELIF MCGREGOR WAS HERE TO SEE HER. SAUL Morris NP CAME IN TO ASSESS PATIENT. I HELPED PATIENT INTO A WC. SHE HAS JERKY MOVEMENTS AND HANDS/ARMS HAVE TREMORS AND JERKY MOVEMENTS. PT IS ABLE AND DID WHEEL HERSELF TO THE DINING ROOM. SHE IS DEMANDING WHEN SHE WANTS SOMETHING AND VERY IMPATIENT. SHE WAS YELLING THAT SHE NEEDED HER DOOR OPENED WHILE I WAS ON THE PHONE. I EXPLAINED I WOULD BE WITH HER WHEN I GOT OFF THE PHONE. I WAS SPEAKING WITH DR LEON. SHE JUST GOT LOUDER AND BEGAN CURSING AND BANGING ON THE WALL. DR LEON ORDERED GEODON 10MG IM ONETIME PRN IF PATIENT DID NOT CALM DOWN OR IF NEEDED FOR AGITATION/SLEEP. PATIENT CALMED WHEN DOOR WAS OPENED. SHE IS CONTINENT TONIGHT AND IS STANDBY ASSIST WHEN USING THE RESTROOM. PATIENT DID HAVE A BM TONIGHT. PATIENT'S BEHAVIOR IS LABILE. ONCE SHE LEFT HER ROOM AFTER YELLING AND SOBBING, SHE WENT TO DINING ROOM AND WAS TALKING WITH ME AND TELLING ME TRICKS HER SISTER TRINA AND HER USED TO PLAY ON THEIR MOM. SHE WAS LAUGHING AND COMPLIANT. SHE TOOK HER MEDS WHOLE WITHOUT INCIDENT. SHE ALLOWED ME TO CHECK HER VITALS AND SHE ALLOWED ME TO PUT HER NAME BAND, FALL RISK BAND, AND ALLERGY BAND ON HER ARM. PATIENT WAS ASSISTED TO BED AROUND 2200. SHE HAS BEEN UP TO BATHROOM EVERY 2 TO 3 HOURS WITH ASSIST. PT TOLD ME AT LAST BATHROOM STOP THAT SHE IS . SHE SAYS SHE HAS 20 KIDS. 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 SHE IS DELUSIONAL. SHE ALSO DEMANDED ICECREAM FROM WATERSHED COORDINATOR AT MIDNIGHT. WATERSHED COORDINATOR TOLD HER SHE WOULD HAVE TO WAIT TILL TOMORROW. PT STATES THAT NURSE SAID SHE COULD HAVE SOME NOW. CLEARLY THIS WAS UNTRUE. VERY MANIPULATIVE. BED IN LOW POSITION. SIDERAILS UP X 4 D/T SEIZURE PRECAUTIONS. BED ALARM IS ON. PT DENIES SI/HI/AVH. SHE DID SPEAK WITH A FRIEND ON THE PHONE THIS EVENING. WILL CONTINUE TO MONITOR.
[2020-04-09 07:45] VITALS: BP 141/90; BP 141/98
[2020-04-09 09:36] LABS: HEMATOCRIT 34.2 % (37.0-47.0); HEMOGLOBIN 11.6 gm/dL (12.0-15.0); MCH 33.1 pg (26.0-34.0); MCV 97.6 fL (80.0-100.0); RBC 3.51 mil/uL (4.20-5.00); WBC 5.1 thou/uL (4.0-11.0)
[2020-04-09 09:41] LABS: CALCIUM 9.2 mg/dL (8.5-10.1); CREATININE 1.2 mg/dL (0.6-1.0); MAGNESIUM 1.9 mg/dL (1.8-2.4)
[2020-04-09 09:42] LABS: POTASSIUM 4.6 mmol/L (3.5-5.1)
--- NOTE | 2020-04-09 16:27 | NUR ---
HYPERVERBAL-SPEECH LOUD,GARBLED DIFFICULT TO UNDERSTAND AT TIMES. 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 RESISITIVE AT TIMES WITH TAKING PO MEDICATIONS BUT DOES DO SO WHEN TOLD WHEN HELP HER GET BACK TO HER "PLACE WHERE I CAN SMOKE WHERE I WAS LIVING"DOES REPORT PAIN IN RIGHT KNEE AND ANKLE RATED A 10 ON 1-10 SCALE-NO REDNESS BRUISING,SWELLING OR SIGNS OF INJURY/TRAUMA NOTED ON INSPECTION-HAS FULL RANGE ROM. ASSISTED TO BR WITH SBA X1-IS HIGH FALLS RISK D/T IMPULSIVE,RAPID JERKING TYPE MOVEMENT,VERY ATAXIC AND WOULD HAVE FALLEN WHEN TOILETING HAD STAFF NOT BEEN PRESENT-ALTHOUGH IS UPSET AND YELLING AT RN "I CAN DO IT ON MY OWN" IS RESISTIVE WITH VERBAL QUEING SAFTEY INSTRUCTIONS STANDING UP ON OWN SEVERAL TIMES WHEN AGITATED ABOUT CIGARETTES,EXTRA COFFEE OR SNACKS- CHAIR ALARM PLACED. TYLENOL 650 MG GIVEN PO PRN AT 1000 FOR ABOVE NOTED KNEE/ANKLE PAIN RATED A 10-PAIN DECREASED TO 8 UPON [address] HERBERT ON UNIT THIS AM AND NOTIFIED OF REPORTED KNEE/ANKLE PAIN.
[2020-04-09 20:03] VITALS: BP 126/88
--- NOTE | 2020-04-10 02:47 | NUR ---
04-09-201899 OBSERVED PT UNSTEADY GAIT, REDIRECTED TO W/CHAIR. CARE TRANSFERED AT 1914 OBSERVED PT SITTING IN DAY ROOM IN W/CHAIR. 1944 PT AAOX2, PT MAIN CONCERN IS GETTING TO SMOKE ONE OR THREE CIGS NOW. PT PRESENTS IRRITABLE, TALKS LOUD SOMETIMES GARBLED AND SOME WORD SALAD. PT HAS BEEN COOPERATIVE THROUGHOUT NURSING ASSESSMENT. BUT REPORTS SHE CANNOT USE THE NICOTINE PATCH BECAUSE SHE IS ALLERGY TO THEM AND CANNOT CHEW THE NICOTINE GUM BECAUSE SHE IS HAS NOT GOT HER UPPER PARTIAL. DURING MEDICATION ADMIN. PT HAS ZERO TROUBLE, AND NO NEW COMPLAINTS OUTSIDE SHE "WANTS TO SMOKE". OF NOTE, PLEASE REFER TO NURSING INTERVENTIONS FOR MORE INFORMATION. ZERO ACUTE DISTRESS NOTED.
[2020-04-10 04:50] LABS: HEMATOCRIT 28.9 % (37.0-47.0); HEMOGLOBIN 9.8 gm/dL (12.0-15.0); MCH 33.3 pg (26.0-34.0); MCV 98.2 fL (80.0-100.0); RBC 2.95 mil/uL (4.20-5.00); RDW 14.8 % (10.5-14.5); WBC 3.8 thou/uL (4.0-11.0)
[2020-04-10 05:13] LABS: CALCIUM 8.4 mg/dL (8.5-10.1); MAGNESIUM 1.9 mg/dL (1.8-2.4); POTASSIUM 4.3 mmol/L (3.5-5.1)
[2020-04-10 08:20] VITALS: BP 156/97
[2020-04-10 10:09] VITALS: BP 156/97
--- NOTE | 2020-04-10 10:55 | NUR ---
JOSSUE WAS FOUND BY ME IN A WHEEL CHAIR MOVING ABOUT THE HALLWAY WITH HER BROWN PAPER BAG. IINTRODUCED MYSELF, AND SHE SAID IM GOING HOME TODAY". THIS MACHINE GRINDER EXPLAINED THAT SHE WOULD HAVE TO SEE THE DR. White ABOUT THAT. JOSSUE'S SPEECH IS SLOW AND GARBBLED. JOSSUE CHANGES THOUGHT PATTERNS IN THE MIDDLE OF WHAT SHE IS SAYING MANYTIMES DURING A CONVERSATION. I HAVE REPEATED BACK TO HER WHAT I THINK SHE IS SAYING TO MAKE SURE.JOSSUE IS IN A WHEELCHAIR SELF PRERPELYING HER SELF. JOSSUE NEEDS DIRECTION TO HER ROOM BECAUSE SHE WANDERS IN TO OTHER CLIENT ROOMS.
--- NOTE | 2020-04-10 18:17 | NUR ---
PT HAS BEEN USING W/C FOR LOCOMOTION AND SOMETIMES SHE WALKS WITH STAND-BY ASSIST. PT HAS FLIGHT OF IDEAS, DOES MAKE HER NEEDS KNOWN. PT TAKING MEDS WITHOUT ANY ISSUES.
[2020-04-10 19:37] VITALS: BP 144/81
--- NOTE | 2020-04-11 05:55 | NUR ---
Assumed care of pt @ 1900. Pt calm et cooperative at beginning of shift. Took medications whole without difficulty. Ambulates the halls via w/c but will occasionally get out of chair et walk down the agosto with unsteady gait. Pt has to be reminded to get back in her chair. Socialized in dayroom with peers and can occasionally be intrusive. VSWNL. Health assessment with no abnormalities other than previously noted. At approximately 0200, pt became loud et belligerent with staff. After repeatedly being told to be quiet so that she would not wake up the other patients, pt became increasingly agitated. Pt was given Geodon 10mg IM PRN which was effective for helping the patient to calm down et be able to go to sleep. Pt denies SI/HI. Currently resting in bed with eyes closed. Will continue to monitor per protocol.
[2020-04-11 07:50] VITALS: BP 159/91
[2020-04-11 08:30] VITALS: BP 159/91
--- NOTE | 2020-04-11 08:30 | NUR ---
PT SITTING OUT IN DINING ROOM. PT TALKING ABOUT WANTING TO GO OUT AND GET FRESH AIR. PT STATED SHE WOULD LIKE TO SMOKE ALSO. PT HAS GARBLED VOICE. PT HAS SCRATCH TO LEFT KNEE AREA. PT HAS SMALL SCRATCH TO RT HAND. PT TRANSPORTS SELF VIA W/C. PT TAKES MEDS WHOLE.
[2020-04-11 10:15] VITALS: BP 141/89
[2020-04-11 11:20] VITALS: BP 140/80
--- NOTE | 2020-04-11 12:00 | NUR ---
NEW ORDERS RECEIVED FOR PT EVAL AND TREAT YESTERDAY AFTER Pt HAD BEEN DISCHARGED FROM ACUTE PT SERVICES. Pt WAS AMBULATORY WITH MIN A AND DECREASED SAFETY AWARENESS IN DECEMBER AND DID THE SAME ON 04/10/20. HER FACILITY HAS HER IN W/C SECONDARY TO HIGH FALL RISK/ATAXIA. Pt NON-COMPLIANCE AND RECOMMENDATION TO USE WALKER AND UNWILLING TO WORK ON EXERCISES WAS REASON FOR D/C OF PT SERVICES IN DECEMBER. Pt'S COGNITIVE STATUS RESTRICTS HER ABILITY TO CARRY OVER SAFETY INFORMATION AND THIS IT IS NOT ADVISABLE FOR HER TO AMBULATE IN LTC FACILITY ASSIST NOT AVAILABLE AND W/ HX OF MULTIPLE FALLS. ACUTE PT TO SIGN OFF. PLAN FOR Pt TO RETURN LTC ONCE MEDICALLY CLEARED.
--- NOTE | 2020-04-11 13:58 | NUR ---
SAUNDRA faxed updates for pt to [facility] at [phone] to Janine. SAUNDRA contacted Etelvina with [facility] and provided an update; SAUNDRA explained pt will be ready for d/c either Tuesday or Tue. She said that was fine and that they have their own transportation. SAUNDRA team will continue to follow pt during her stay on this unit.
--- NOTE | 2020-04-11 15:31 | NUR ---
Patient went to her room, sustained an unwitnessed fall on floor beside her bed. She left dayroom (which had 2 nurses, 2 aides) to go to her room and [facility] for a nurse. She got up from w/c and sat/fell to floor landing on buttocks, c/o initial left shoulder pain. Later her left wrist started swelling. Arm bracelets changed to her right wrist. X-rays of left shoulder and left wrist. Pt. seen by Dr. Morrison about 1050, Dr. Toscano about 1300. Orientation to name, place, purpose. Initial VS=T=98.2, p=77,r=20, 141/89, O2=96%. About 1215 KW=464/80. Refused Temp. DPOA notified about 1445 without x-ray results yet.Bench Assembly Inspector and PA Healther notified.
--- NOTE | 2020-04-11 16:17 | NUR ---
PT SITTING IN FRONT OF NURSING DESK AND TALKING NON-STOP AND THROWING SELF BACK IN W/C. ADM BENZTROPINE 0.5MG PO AND HALDOL 5MG PO. PT ALSO IRRITATING OTHER PATIENTS.
--- NOTE | 2020-04-11 18:51 | NUR ---
CALLED DR. WRIGHT FOR ORDERS, PT IS STILL UPSET AND WANTING TO USE THE PHONE AND THRASHING AROUND IN W/C. STAFF WITH PATIENT FOR SAFETY.
[2020-04-11 19:57] VITALS: BP 117/62
--- NOTE | 2020-04-12 04:51 | NUR ---
Assumed care of pt @ 1900. Pt was given Geodon IM @ around 1900 from previous shift due to extreme agitation et banging head against the wall. Pt was calm et cooperative after injection et was able to take medications whole without difficulty. Ambulates via w/c. Socialized solitarily in dayroom. VSWNL. Health assessment with no abnormalities other than previously noted. Denies SI/HI. No further behaviors noted following injection. Pt was placed in high back w/c to prevent head from rolling back et to prevent pt from banging head against rousseau backwards. Pt currently resting in w/c in dayroom with eyes closed. Will continue to monitor per protocol.
[2020-04-12 06:08] LABS: HEMATOCRIT 31.7 % (37.0-47.0); HEMOGLOBIN 10.6 gm/dL (12.0-15.0); MCH 32.7 pg (26.0-34.0); MCHC 33.3 g/dL (28.0-37.0); MCV 98.2 fL (80.0-100.0); RBC 3.23 mil/uL (4.20-5.00); RDW 14.9 % (10.5-14.5); WBC 5.2 thou/uL (4.0-11.0)
[2020-04-12 06:11] LABS: CALCIUM 8.8 mg/dL (8.5-10.1); MAGNESIUM 1.8 mg/dL (1.8-2.4); POTASSIUM 4.6 mmol/L (3.5-5.1)
[2020-04-12 08:48] VITALS: BP 150/90
[2020-04-12 09:53] VITALS: BP 150/90
--- NOTE | 2020-04-12 10:55 | NUR ---
1050 RESUMMED CARE FROM OVERNIGHT SHIFT THIS AM, PATIENT IN ROOM RESTING. PATIENT GOT UP AND DID NOT EAT BREAKFAST BUT DRANK ENSURE WITH MEDICATION. PATIENTS ABDOMEN SOFT ROUND BOWEL SOUNDS PRESENT, LUNGS CLEAR PATIENT IRRITABLE. SHE HAS BEEN YELLING ABOUT THE PHONE AND THE NUMBER SHE GAVE WAS NOT THE RIGHT NUMBER. PATIENT IS VERY LABILE NOT MAKING SENSE WHE SHE IS TALKING. PATIENT DENIES SI/HI/AH/VH AT PRESENT PATIENT WAS GIVEN 5 MG OF HALDOL FOR AGITATION THIS MORNING. WILL CONTINUE TO MONITOR PATIENT FOR SAFETY AND BEHAVIORS.
--- NOTE | 2020-04-12 17:49 | NUR ---
Patient unable to participate in group due to cognitive deficit.
[2020-04-12 19:55] VITALS: BP 141/105
[2020-04-12 22:00] VITALS: BP 141/105
--- NOTE | 2020-04-13 01:28 | NUR ---
Assumed care of patient this pm shift. Patient very loud when talking in mileu and the agosto. Patient roaming around in a wheel chair. Patient states that she is . Patient also states that she ordered a pizza at 4 pm. Patient speaks in word salad much of the time. Patient takes medications whole with encouragement. Patient denies si. Patient denies pain. Patients assessment shows clear breath sounds, diminished in the bases, hypoactive bowel sounds, and s1 s2 heard with auscultation. Patient is alert and oriented to self only. Patient wears a brief and needs assistance with toileting. We will continue to monitor patient per hospital protocol.
[2020-04-13 07:46] VITALS: BP 135/85
[2020-04-13 08:00] VITALS: BP 135/85
[2020-04-13 08:55] VITALS: BP 135/85
--- NOTE | 2020-04-13 09:03 | NUR ---
PT SITTING BY NURSING DESK TALKING WITH AIRPLANE CHARTER CLERK. PT STILL BELIEVES SHE IS . PT HAS RUNNY NOSE, NO COUGH OR FEVER. PT SITTING IN W/C WITH LAP TAM. PT NON-STOP TALKING OF FLIGHT OF IDEAS. PT HAS GRUFF VOICE, PT STILL TALKING ABOUT WANTING TO SMOKE. PT DID TAKE HER MEDS, PT REFUSED ASA 81MG STATED SHE WANTED A ADULT ASPIRIN.
--- NOTE | 2020-04-13 09:40 | NUR ---
TRIED TO ADM HALDOL 5MG AND BENZTROPINE 0.5MG PO FOR AGITATION. PT RECOGNIZED THAT THE GREEN PILL WAS HALDOL AND REFUSED THE HALDOL DUE TO COMPLAINTS OF FEELING SLEEPY AND THEN SHE WOULD GET RAPED. PT DID TAKE BENZTROPINE 0.5MG PO.
[2020-04-13 11:57] LABS: URINE BILIRUBIN NEGATIVE (Negative); URINE BLOOD NEGATIVE (Negative); URINE CLARITY CLEAR; URINE COLOR YELLOW; URINE GLUCOSE-RANDOM* NEGATIVE (Negative); URINE KETONES NEGATIVE (Negative); URINE LEUKOCYTES NEGATIVE (Negative); URINE NITRITE NEGATIVE (Negative); URINE PROTEIN (DIPSTICK) NEGATIVE (Negative); URINE SPECIFIC GRAVITY 1.015 (1.005-1.035); URINE UROBILINOGEN 0.2 E.U./dl (0.2-1.0)
--- NOTE | 2020-04-13 14:47 | NUR ---
PT STILL ROAMING AROUND THE UNIT IN W/C. PT STATED SHE HAS A HEADACHE AND WILL TAKE ONE TYLENOL. PT STATED SHE WANTS TO HAVE COFFEE. PT HAD PIZZA ORDERED FOR LUNCH, PT STATED SHE WILL NOT EAT THAT. PT DID DRINK ENSURE. PT NOT TALKING LOUDLY AT BEFORE.
--- NOTE | 2020-04-13 16:09 | NUR ---
Patient unable to participate in group due to cognitive deficit.
--- NOTE | 2020-04-13 16:37 | NUR ---
PT SKIN WARM TO TOUCH. TOOK PT TEMP 99.3. PT LEFT HAND IS SWOLLEN AND A SCAB ON TOP OF THE HAND. PT STILL TALKING AND SCREECHING.
--- NOTE | 2020-04-13 18:26 | NUR ---
GOING TO GIVE HALDOL 5MG PO FOR AGGITATION, UPSETING THE MEILU. CRUSHED MED IN ICE CREAM AND PT TOOK ICE CREAM AND DROPPED IT. PT REFUSED TO TAKE MED. PT WANTING TO MAKE A PHONE CALL AND SAYING NUMBER.
--- NOTE | 2020-04-13 18:32 | NUR ---
PT WANTED TO TALK TO HER . CALLED DPOA NUMBER AND PT TALKING TO ZULY. PT TALKING IN NORMAL TONE VOICE.
[2020-04-13 20:21] VITALS: BP 113/90
[2020-04-13 22:00] VITALS: BP 113/90
--- NOTE | 2020-04-14 00:57 | NUR ---
Assumed care of patient this pm shift. Patient sitting in wheelchair talking nonstop in word salad. Patient states that she is . Patient can be redirected. Patient is alert and oriented to self. Patient ambulates with walker and wheelchair. Patient takes medications whole. Patient is continent of bowel and bladder, needs assistance to get safely to the toilet. Patient denies hi/si. Patients assessment shows clear breath sounds, hypoactive bowel sounds, and s1 s2 heard with auscultation. We will continue to monitor per hospital protocol. Patient is a high risk for falls per ng scale.
[2020-04-14 08:00] VITALS: BP 151/116
[2020-04-14 08:44] VITALS: BP 151/116
--- NOTE | 2020-04-14 09:29 | NUR ---
PT STARTED OUT IN W/C THIS AM WITHOUT A LAP TAM. PT WAS GETTING UP WITHOUT LOCKING W/C. THIS FUR SEWER TOLD PT THAT SHE WILL HAVE TO USE LAP TAM IF HE GETS UP WITHOUT ASSIST. PT UNDERSTOOD. PT DID TAKE AM MEDS WITHOUT ANY ISSUES. SHE DIDN'T WANT TO TAKE DEPAKOTE. PT LIKES TO TAKE MED CUP PER SELF AND SOMETIMES SHE IS NOT TO BE TRUSTED WITH MED CUP DUE TO DROPPING MEDS.
--- NOTE | 2020-04-14 12:00 | NUR ---
PT REFUSED CLONIPINE, PT WANTING A CALCIUM TABLET. PT STATED SHE KNEW THAT THIS WAS A CLONIPINE TAB AND THAT IT WAS A TRANQULIZER. PT TOOK MED CUP AND THREW THE PILL IN THE TOILET.
[2020-04-14 13:00] VITALS: BP 120/70
--- NOTE | 2020-04-14 13:00 | NUR ---
PT RESTING IN BED AT THIS TIME.
--- NOTE | 2020-04-14 13:53 | NUR ---
SAUNDRA contacted Etelvina at [phone] and provided her an update; SAUNDRA explained pt is not ready for d/c. SAUNDRA faxed updates to Etelvina and Janine. SAUNDRA team will continue to follow pt during her stay on this unit.
--- NOTE | 2020-04-14 14:49 | NUR ---
PT UP NOW AT THIS TIME IN W/C TALKING TO NURSE AND RESIDENTS.
--- NOTE | 2020-04-14 15:36 | NUR ---
PT TALKING LOUDLY BY THE NURSES STATION. PT ASKED TO LOWER VOICE DUE TO ANOTHER NURSE IS ON THE PHONE, PT SAID YES AND STOPPED TALKING.
--- NOTE | 2020-04-14 17:02 | NUR ---
APPROACHED PT WITH KLONIPINE 0.5MG PO. PT STATED SHE IS NOT GOING TO TAKE IT DUE TO IT MAKES HERE FALL ASLEEP. PT THEN SLAMMED WATER PITCHER ON WINDOW AND SPILLED. PT STATED SHE WILL CLEAN IT UP. THEN STATED SHE WILL GET A HALDOL SHOT FOR AGITATION. PT STATED NO, PT THEN TOOK PO KLONIPIN. PT REFUSING TO EAT DINNER.
--- NOTE | 2020-04-14 17:20 | NUR ---
ADM TYLENOL 325MG PO 2 TABS FOR COMPLAINS OF HEADACHE. PT WANTING SEIZURE MEDICATION AT THIS TIME NOW. TOLD PT IT WAS TOO EARLY. PT ALSO WANTING MCDONALDS COFFEE AND ICE CREAM.
--- NOTE | 2020-04-14 17:38 | NUR ---
PT IN BATHROOM COMBING HER HAIR. PT HAS BEEN IN W/C MOST OF DAY WITHOUT LAP TAM. PT DID USE WALKER THIS AM.
[2020-04-14 22:00] VITALS: BP 120/70
--- NOTE | 2020-04-15 00:58 | NUR ---
Assumed care of patient this pm shift. Patient sitting in the hallway in her wheelchair. Patients moods are up and down. Patient was talking and carrying on and then started to cry. Her words were mixed up and it was difficult to make sense of what she was saying. Patient was med compliant this evening. Patient takes medications whole. Patient did need to be redirected regarding using her wheelchair. During the evening shift she did get out of the chair and started walking. Patients gait is unsteady. Patient was redirected back to her wheelchair. Patient is alert and oriented to self and place. Patient denies hi/si. Patients assessment shows clear breath sounds, active bowel sounds, and s1 s2 heard with auscultation. We will continue to monitor per hospital protocol.
[2020-04-15 07:51] VITALS: BP 103/83
--- NOTE | 2020-04-15 12:55 | NUR ---
PATIENT CARE ASSUMED AT 0700. PATIENT LOUD AND RANTING MOST OF THE MDS COORDINATOR. TOOK MEDICATIONS RELUCTANTLY - ONLY TO AVOID IM REQUIRED IF INCOMPLIANT. PATIENT. DENIES ANY S/I - ALERT AND ORIENTED X 4 - BUT INTRUSIVE AND DEMANDING AT TIME. DR. WRIGHT ADVISED INCREASED ATIVAN TO 1 MG. FROM 0.5MG. PATIENT HAS BEEN COMPLIANT AND APPEARS TO BE CALMER WHEN ATIVAN IN HER SYSTEM. DENIES ANY PAIN - REFUSED NICOTENE PATCH WHEN OFFERED. GOOD APPETITE. DID NOT PARTICIPATE IN GROUPS AND REDIRECTED TO RETURN TO ROOM IF DISRUPTIVE. CURRENTLY IN DINING ROSEN AND CALM AND QUIET.
--- NOTE | 2020-04-15 19:52 | NUR ---
Assumed care at change of shift. Pt. lying in bed with eyes closed. Respirations even and non-labored. No signs or symptoms of pain or distress. Assessment completed.
[2020-04-15 20:03] VITALS: BP 151/79
--- NOTE | 2020-04-15 22:14 | NUR ---
At approximately 2100 patient propelled self to dining room in w/c using her feet and not arms. Pt. asking for laxative. It was explained to patient that she had a PRN dose of MOM along with prune juice at approximately 1730. She followed this nurse down the hallway yelling, "give me a laxative"! It was explained once again that she had received a dose of MOM approximately 4-1/2 hrs previously along with prune juice. Patient settled for second prune juice. Patient took medications whole without difficulty.
[2020-04-15 23:30] VITALS: BP 151/79
[2020-04-16 07:43] VITALS: BP 139/91
--- NOTE | 2020-04-16 09:00 | NUR ---
Assumed care 0700. Difficult to awaken, wanted to sleep in late. No c/o's. Left hand and arm swollen and dark purple bruised from former fall of last week.
--- NOTE | 2020-04-16 12:19 | NUR ---
RT Progress Note- Sherri's participation in recreation therapy is limited as she struggles to focus in structured activity. To date she has not participated through a group but is accepting of social conversation. 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
--- NOTE | 2020-04-16 12:43 | NUR ---
When patient given noon dose Clonazapam she insisted she was being overdosed that she should get 0.1 mg. She wanted nurse to call the hospital and verify her usual dose of that med is 0.1mg. She reassured she was getting the correct dose.= 1 mg=showed the package. She took the medication then made a beelinefor her room, got out of the w/c, not locking it completely the went into the bthroom. Nurse followed her into the room observing her walk to the bathroom to find her spitting med into kleenex. She was confronted and reminded that she was getting the proper doseage that the nurse could only take her doseage from the medication machine.
--- NOTE | 2020-04-16 13:42 | NUR ---
Nurse returned the call to patient's sister Tamra to discuss meds/plan of care. She would like to hve video chat with patient. Sister was referred to the social staff worker-Rea.
--- NOTE | 2020-04-16 15:14 | NUR ---
Pt is a fall arisk. She is in a yellow t-shirt, yellow sock and has a fall bracelet on her wrist. murphy refuses to utilize a chair alarm.
--- NOTE | 2020-04-16 17:30 | NUR ---
States she is 39 yo, had facial surgery, is and that her father is still alive then reports he was buried alive and was calling for help. Adamantly wants lower dose of Clonazepam like 0.1 mg-the yellow kind. Remains impulsive with quick movements.
--- NOTE | 2020-04-16 19:00 | NUR ---
Note Well: due to two times of Keppra being listed on the previous night's eMAR and this RN unable to change it, the 0900 med was not on the eMAR, med was given with other 0900 meds 04/16/20 but unable to be charted for 04/16/20 AM.
[2020-04-16 20:09] VITALS: BP 120/80
[2020-04-16 22:00] VITALS: BP 120/80
--- NOTE | 2020-04-17 01:20 | NUR ---
Assumed care of patient this pm shift. Patient wondering the unit in her wheelchair. Patient denies hi/si. Patient is alert and oriented to person and place. Patient is unaware of the date and time. Patient is argumentative this evening and difficult to redirect. Patient is able to walk but her gait is unsteady. Patient is a fall risk per ng scale. Patient states that she wants to have her parents come pick her up. Patients affect is blunted. Patients assessment shows clear breath sounds, active bowel sounds, and s1 s2 heard with auscultation. Patient is continent of bowel and bladder but needs assistance to void. Patient takes medications whole but picks through the pills and chooses which ones she will take. Patient is encouraged to take all medications. We will continue to monitor per hospital protocol.
[2020-04-17 06:03] LABS: HEMATOCRIT 35.9 % (37.0-47.0); HEMOGLOBIN 12.2 gm/dL (12.0-15.0); MCH 33.7 pg (26.0-34.0); MCHC 34.1 g/dL (28.0-37.0); MCV 98.8 fL (80.0-100.0); PLATELET COUNT 208 thou/uL (150-400); RBC 3.63 mil/uL (4.20-5.00); RDW 15.4 % (10.5-14.5); WBC 6.7 thou/uL (4.0-11.0)
[2020-04-17 06:13] LABS: ALBUMIN 3.2 g/dL (3.4-5.0); CALCIUM 9.5 mg/dL (8.5-10.1); CREATININE 1.1 mg/dL (0.6-1.0); TOTAL BILIRUBIN 0.2 mg/dL (0.2-1.0); TOTAL PROTEIN 6.8 g/dL (6.4-8.2)
[2020-04-17 07:55] VITALS: BP 156/70
[2020-04-17 08:00] VITALS: BP 156/70
--- NOTE | 2020-04-17 08:34 | NUR ---
PT OUT IN DINING ROOM. PT STATED SHE DIDN'T WANT ANYTHING TO MAKE HER SLEEPY. PT REFUSED STOOL SOFTNER MEDICATION, CLONZEPAM, NICOTINE PATCH, AND NAPROXIN. PT NOT TALKING LOUDLY. NO MENTION OF HAVING A BABY. PT AWARE OF WHERE SHE IS.
[2020-04-17 11:07] LABS: ABSOLUTE NEUTROPHILS 3.9 thou/uL (1.4-8.2)
[2020-04-17 11:08] LABS: ANISOCYTOSIS 1+
--- NOTE | 2020-04-17 12:00 | NUR ---
PT EATING LUNCH AT THIS TIME. PT TOLD THE AUDIT MGR THAT SHE IS 33 YRS OLD AND ISSAC PUILDO IS HER BOYFRIEND AND SHE HAS 12 KIDS AND WITH TWINS.
--- NOTE | 2020-04-17 12:39 | NUR ---
PT STATED SHE WOULD TAKE 1/2 DOSE OF KLONAPINE, SHE TALKED TO DR. WRIGHT BEFORE LUNCH TIME.
--- NOTE | 2020-04-17 14:05 | NUR ---
Assess due to length of stay. Admit to [facility] with bipolar, schizoaffectie disorder, anxiety. Follows vegetarian diet, variable intake 25-100% of meals but has been drinking ensure enlive offered bid. Possible wt loss from 12/2019 as pt weighing 142 lb per [employer] records, now 123-126 lb stable since March. Assess as low nutrition risk with appropriate nutrition interventions in place but continue to follow intake and wt trends.
--- NOTE | 2020-04-17 15:08 | NUR ---
PT HAS BEEN ALOT TOLERABLE TODAY, NOT TALKING LOUDLY OR THRASHING IN WHEELCHAIR.
--- NOTE | 2020-04-17 15:19 | NUR ---
PT STILL REFUSING TO GO TO GROUPS. PT LEFT ARM IS BRUISED AT HAND TO FOREARM. PT WANTING A SLING. THERE IS AN ORDER FOR PT MAY HAVE A SLING.
[2020-04-17 20:22] VITALS: BP 121/82
--- NOTE | 2020-04-18 05:30 | NUR ---
Assumed care on 04/17/20 @ 19:15, in w/c in [facility], propelling self in the halls and day room. Covid 19 lab negative results. Requests name of each medication, and wants to discuss and debate each one. Informed the doctor is the one to change medications, and patient took meds with encouragement. Needs chair alarm in w/c. L arm bruise and healing scab to L knee and L wrist.
[2020-04-18 07:16] LABS: ALBUMIN 3.1 g/dL (3.4-5.0); CALCIUM 9.3 mg/dL (8.5-10.1); CREATININE 1.1 mg/dL (0.6-1.0); POTASSIUM 5.8 mmol/L (3.5-5.1); TOTAL BILIRUBIN 0.2 mg/dL (0.2-1.0); TOTAL PROTEIN 6.2 g/dL (6.4-8.2)
[2020-04-18 07:55] VITALS: BP 120/90
[2020-04-18] MEDS ORDERED: BANOPHEN25 M1 PO (09:34)
[2020-04-18] MEDS ORDERED: NAPROXEN250 MG PO (09:34)
[2020-04-18] MEDS ORDERED: EXTRA STRENGTH85 GM TOP (09:34)
[2020-04-18] MEDS ORDERED: CLONAZEPAM 0.50.5 M1 PO ×2 (09:35)
[2020-04-18] MEDS ORDERED: TRAZODONE 150150 M1 PO (09:36)
[2020-04-18] MEDS ORDERED: ZYPREXA 5 MG TAB5 M1 PO (09:37)
[2020-04-18 09:42] VITALS: BP 120/90
--- NOTE | 2020-04-18 11:20 | NUR ---
1110 RESUMMED CARE FROM OVERNIGHT SHIFT THIS AM, PATIENT IN DAY ROOM DRINKING COFFEE AND TALKING WITH OTHER PATIENTS. PATIENT ATE BREAKFAST AND TOOK MEDICATION WITHOUT INCIDENCE. PATIENTS ABDOMEN SOFT ROUND BOWEL SOUNDS PRESENT, LUNGS CLEAR. PATIENT DENIES SI/HI/AH/VH AT PRESENT PATIENT IS DISCHARGING TODAY TO [facility]. PATIENT COOPERATIVE CALM WILL CONTINUE TO MONITOR PATIENT FOR SAFETY AND BELONGINGS.
== END 2020-04-18 11:40 | DRG 885 ==
LOC: ER 12:02 → SBH 14:00 → EROBS 14:00 → SBH 17:10
PROVIDERS: Internal Medicine; Nurse Practitioner Family; Psychiatry & Neurology Psychiatry; ADMIT Psychiatry & Neurology Psychiatry
DX: F20.9 Schizophrenia, unspecified (principal); N17.9 Acute kidney failure, unspecified; N18.9 Chronic kidney disease, unspecified; G40.909 Epilepsy, unspecified, not intractable, without status epilepticus; G47.00 Insomnia, unspecified; K21.0 Gastro-esophageal reflux disease with esophagitis; E03.9 Hypothyroidism, unspecified; I12.9 Hypertensive chronic kidney disease with stage 1 through stage 4 chronic kidney disease, or unspecified chronic kidney disease; F41.9 Anxiety disorder, unspecified; F31.9 Bipolar disorder, unspecified; K58.9 Irritable bowel syndrome, unspecified; F17.210 Nicotine dependence, cigarettes, uncomplicated; M17.11 Unilateral primary osteoarthritis, right knee; E87.5 Hyperkalemia; Z79.82 Long term (current) use of aspirin; Z79.899 Other long term (current) drug therapy; Z88.1 Allergy status to other antibiotic agents; Z91.040 Latex allergy status; Z91.011 Allergy to milk products; Z88.0 Allergy status to penicillin; Z88.8 Allergy status to other drugs, medicaments and biological substances; Z91.048 Other nonmedicinal substance allergy status; Z91.14 Patient's other noncompliance with medication regimen
CPT/HCPCS: 10880